=== PATIENT | female | born 1995 | race African-American/Black ===

== ENCOUNTER 2016-08-03 09:50 | Observation (INO) | payer MEDICAID ==
[2016-08-04] MEDS ORDERED: PRENCAP61 PO (12:16)
[2016-08-04] MEDS ORDERED: FERR-7 PO (12:17)
== END 2016-08-03 12:00 | disposition home or self-care (01) | DRG 566 ==
LOC: LDRP 09:50
PROVIDERS: ADMIT Specialist; ATTEND Specialist
DX: O48.0 Post-term pregnancy (principal); Z3A.00 Weeks of gestation of pregnancy not specified
CPT/HCPCS: 59025; 76818; 81002; G0378

== ENCOUNTER 2016-08-03 23:08 | Inpatient (IN) | payer MEDICAID ==
[~2016-08-03] VITALS: Ht 165.1 cm; Wt 123.4 kg
[2016-08-03] MEDS ORDERED: WITCH HAZEL-GLYCERIN PAD TOP ONE (23:24)
[2016-08-03] MEDS ORDERED: DERMOPLAST 60ML BOTTLE TOP ONE (23:24)
[2016-08-03] MEDS ORDERED: LIDOCAINE 2%HCL (LOCAL ANESTH.) INJ 20ML MDV ONE (23:24)
[2016-08-03] MEDS ORDERED: PHISODERM TOP SOLN 240ML BTL TOP ONE (23:24)
[2016-08-03] MEDS ORDERED: LACT. RINGERS/OXYTOCIN 20UNITS 1,000 ML IV ONE (23:24)
[2016-08-03] MEDS ORDERED: METHYLERGONOVINE MALEATE 0.2 MG/ML AMP IM ONE (23:25)
[2016-08-03] MEDS ORDERED: LACTATED RINGER'S 1,000 ML IV SCH (23:38)
[2016-08-03] MEDS ORDERED: NALBUPHINE HCL 10 MG/1ml INJECTION IV PRN (23:45)
[2016-08-04] MEDS ORDERED: OXYTOCIN 10UNIT/ML 1ML VIAL ONE (00:19)
[2016-08-04] MEDS ORDERED: LACT. RINGERS/OXYTOCIN 20UNITS 500 ML IV ONE (00:50)
[2016-08-04 01:13] LABS: Basophils # (auto) 0 uL; Basophils % (auto) 0.3 % (0.0-2.0); Eosinophils # (auto) 0 uL; Eosinophils % (auto) 0.7 % (0.0-7.0); Lymphocytes # (auto) 1.5 uL; Lymphocytes % (auto) 21.1 % (10.0-50.0); Mean Corpuscular Hemoglobin 30.7 pg (28.0-32.0); Mean Corpuscular Hgb Conc. 33.4 g/dL (32.0-36.0); Mean Corpuscular Volume 91.9 fL (80.0-100.0); Mean Platelet Volume 8.6 fL (7.4-10.4); Monocytes # (auto) 0.5 uL; Monocytes % (auto) 6.4 % (0.0-12.0); Neutrophils # (auto) 5.1 uL; Neutrophils % (auto) 71.5 % (37.0-80.0); Platelet Count (auto) 149 10^3/uL (140-450); Red Cell Distribution Width 13.9 % (11.6-16.0); White Blood Cell 7.1 10^3/uL (4.4-10.8)
[2016-08-04 01:20] LABS: Urine Bilirubin Negative (Negative); Urine Color Yellow (Yellow); Urine Glucose Normal (Normal); Urine Ketone TRACE (Negative); Urine Mucus FEW (None Seen); Urine Nitrite Negative (Negative); Urine RBC 36 /hpf (0 - 4); Urine Squamous Epithelial Cell FEW /hpf (<5); Urine pH 6.5 (5.0-8.0)
[2016-08-04 01:21] LABS: Urine Blood 2+ /uL (Negative)
[2016-08-04 01:27] LABS: Partial Thromboplastin Time 28.5 sec (22.64-33.71); Prothrombin Time 9.4 sec (9.37-12.3)
[2016-08-04 01:29] LABS: INR 0.86 (0.9-1.15)
[2016-08-04 01:31] LABS: Albumin 2.4 g/dL (3.4-5.0); BUN/Creatinine Ratio 9.5; Calcium 8.5 mg/dL (8.5-10.1); Potassium 3.6 mmol/L (3.5-5.1)
[2016-08-04 01:34] LABS: Bilirubin, Total 0.4 mg/dL (0.2-1.0); Total Protein 7.1 g/dL (6.4-8.2)
[2016-08-04] MEDS: IBUPROFEN 600 MG TAB PO PRN ×3 (03:43→17:19)
[2016-08-04 08:00] VITALS: BP 115/64
[2016-08-04] MEDS ORDERED: PRENCAP61 PO (12:16)
[2016-08-04 12:17] VITALS: BP 99/55
[2016-08-04] MEDS ORDERED: FERR-7 PO (12:17)
[2016-08-04 15:56] VITALS: BP 115/77
[2016-08-04 19:30] VITALS: BP 130/68
[2016-08-05 00:30] VITALS: BP 114/72
[2016-08-05] MEDS ORDERED: TETANUS-DIPTH-ACEL PERTUSSIS 0.5ML SYRG IM ONE (00:45)
[2016-08-05] MEDS ORDERED: MEASLES, MUMPS & RUBELLA VAC(MMRII) 0.5ML SC ONE (00:45)
[2016-08-05 04:30] VITALS: BP 107/62
[2016-08-05 08:16] VITALS: BP 109/62
== END 2016-08-05 10:40 | disposition home or self-care (01) | DRG 560 ==
LOC: LDRP 23:08 → OBSVTOIN 23:08
PROVIDERS: ADMIT Specialist; ATTEND Specialist
PROC: 10E0XZZ Delivery of Products of Conception, External Approach (ICD-10-PCS; principal; 2016-08-04)
DX: O80 Encounter for full-term uncomplicated delivery (principal); Z37.0 Single live birth; Z3A.40 40 weeks gestation of pregnancy
CPT/HCPCS: 36415; 51702; 59025; 59409; 80053; 80307; 81001; 85025; 85610; 85730; 86850; 86900; 86901; 90472; 90715; 96365; 96366; 96372; G0378; J2590

== ENCOUNTER 2021-03-09 07:34 | Observation (INO) | payer MEDICAID ==
[~2021-03-09 07:34] MED LIST: FERR-7 PO; PRENCAP61 PO
[2021-03-09 13:09] LABS: Urine Bacteria FEW /hpf (None Seen); Urine Blood Negative /uL (Negative); Urine Hyaline Cast FEW /lpf (0 - 2); Urine Mucus FEW (None Seen); Urine WBC 8 /hpf (0 - 5)
== END 2021-03-09 13:34 | disposition home or self-care (01) ==
LOC: LDRP 11:47
PROVIDERS: ADMIT Obstetrics & Gynecology Obstetrics; ATTEND Obstetrics & Gynecology Obstetrics
DX: O24.419 Gestational diabetes mellitus in pregnancy, unspecified control (principal); O98.813 Other maternal infectious and parasitic diseases complicating pregnancy, third trimester; Z3A.33 33 weeks gestation of pregnancy
CPT/HCPCS: 59025; 81001; 81002; 82962; 87491; 87591; 94760; G0378

== ENCOUNTER 2021-03-16 08:30 | Observation (INO) | payer MEDICAID ==
[2021-04-07 14:50] LABS: Basophils # (auto) 0.1 10 ^3/uL (0-0.2); Eosinophils # (auto) 0 10 ^3/uL (0-0.8); Eosinophils % (auto) 0.6 % (0.0-7.0); Hematocrit 36.2 % (36.0-46.0); Lymphocytes # (auto) 1.3 10 ^3/uL (0.4-5.4); Lymphocytes % (auto) 22.5 % (10.0-50.0); Mean Corpuscular Hemoglobin 28.3 pg (28.0-32.0); Mean Corpuscular Hgb Conc. 33.2 g/dL (32.0-36.0); Mean Corpuscular Volume 85.1 fL (80.0-100.0); Monocytes # (auto) 0.4 10 ^3/uL (0-1.3); Monocytes % (auto) 6.8 % (0.0-12.0); Neutrophils % (auto) 69.1 % (37.0-80.0); Nucleated Red Blood Cells % 0.1 %; Red Blood Cells 4.25 10^6/uL (4.0-5.20); White Blood Cell 5.8 10^3/uL (4.4-10.8)
[2021-04-07 15:06] LABS: INR 0.91 (0.9-1.15)
[2021-04-07 15:09] LABS: Albumin 2.8 g/dL (3.4-5.0); Calcium 8.6 mg/dL (8.5-10.1); Potassium 3.4 mmol/L (3.5-5.1); Uric Acid 2.6 mg/dL (2.6-6.0)
[2021-04-07 15:12] LABS: BUN/Creatinine Ratio 6.3; Bilirubin, Total 0.7 mg/dL (0.2-1.0); Total Protein 7.6 g/dL (6.4-8.2)
[2021-04-07 15:23] LABS: Urine Bacteria FEW /hpf (None Seen); Urine Blood Negative /uL (Negative); Urine Specific Gravity 1.004 (1.001-1.035); Urine WBC 1 /hpf (0 - 5)
[2021-04-07 16:46] LABS: Creatinine, Urine 23 mg/dL (30.0-125.0); Protein, Urine < 5.0 mg/dL (0.0-11.9)
== END 2021-04-07 14:50 | disposition home or self-care (01) ==
LOC: LDRP 04-07 11:30
PROVIDERS: ADMIT Obstetrics & Gynecology; ATTEND Obstetrics & Gynecology
DX: O24.419 Gestational diabetes mellitus in pregnancy, unspecified control (principal); Z3A.37 37 weeks gestation of pregnancy; Z79.899 Other long term (current) drug therapy
CPT/HCPCS: 36415; 59025; 76818; 80053; 81001; 81002; 82570; 82948; 82962; 84156; 84550; 85025; 85610; 85730; G0378

== ENCOUNTER 2021-04-09 08:30 | Observation (INO) | payer MEDICAID ==
[2021-04-09 09:12] LABS: Protein, Urine 9.6 mg/dL (0.0-11.9)
[2021-04-09 09:26] LABS: 24 Hr. Total Protein, Urine 182.4 mg/24 Hr (<149.1)
[2021-04-09 11:39] LABS: Creatinine Clearance, Urine 75.05 mL/min (75-115)
[2021-04-09 12:11] LABS: Protein, Urine 36.3 mg/dL (0.0-11.9)
== END 2021-04-09 12:22 | disposition home or self-care (01) ==
LOC: LDRP 08:30
PROVIDERS: ADMIT Obstetrics & Gynecology; ATTEND Obstetrics & Gynecology
DX: O24.419 Gestational diabetes mellitus in pregnancy, unspecified control (principal); O13.3 Gestational [pregnancy-induced] hypertension without significant proteinuria, third trimester; Z3A.37 37 weeks gestation of pregnancy; Z79.899 Other long term (current) drug therapy; Z98.890 Other specified postprocedural states
CPT/HCPCS: 59025; 76818; 81002; 82570; 82575; 82948; 82962; 84156; G0378; G0379

== ENCOUNTER 2021-04-27 10:34 | Inpatient (IN) | payer MEDICAID ==
[~2021-04-27] VITALS: Ht 165.1 cm; Wt 135.2 kg
[2021-04-27] MEDS ORDERED: BUTORPHANOL TARTRATE 2 MG/1 ML VIAL IV PRN ×2 (20:30)
[2021-04-27] MEDS ORDERED: LIDOCAINE 2%HCL (LOCAL ANESTH.) INJ 20ML MDV IJ PRN (20:30)
[2021-04-27] MEDS ORDERED: PROMETHAZINE HCL 25 MG/ML 1ML IV PRN (20:30)
[2021-04-27] MEDS ORDERED: miSOPROStol 50 MCG per PRE-CUT 1/2 TAB PO PRN (21:00)
[2021-04-27] MEDS ORDERED: LACT. RINGERS/OXYTOCIN 20UNITS 500 ML IV ONE ×2 (21:00→21:30)
[2021-04-27] MEDS: WITCH HAZEL-GLYCERIN PAD TOP PRN (21:06)
[2021-04-27] MEDS: DERMOPLAST 60ML BOTTLE TOP PRN (21:06)
[2021-04-27] MEDS: PHISODERM TOP SOLN 240ML BTL TOP PRN (21:06)
[2021-04-27] MEDS: LACTATED RINGER'S 1,000 ML IV SCH (21:10)
[2021-04-27 21:39] LABS: Basophils # (auto) 0 10 ^3/uL (0-0.2); Basophils % (auto) 0.2 % (0.0-2.0); Eosinophils # (auto) 0 10 ^3/uL (0-0.8); Eosinophils % (auto) 0.4 % (0.0-7.0); Hematocrit 33.3 % (36.0-46.0); Lymphocytes # (auto) 1.3 10 ^3/uL (0.4-5.4); Lymphocytes % (auto) 24.8 % (10.0-50.0); Mean Corpuscular Hemoglobin 27.8 pg (28.0-32.0); Mean Corpuscular Volume 84.4 fL (80.0-100.0); Monocytes # (auto) 0.4 10 ^3/uL (0-1.3); Monocytes % (auto) 8.1 % (0.0-12.0); Neutrophils # (auto) 3.6 10 ^3/uL (1.6-8.6); Neutrophils % (auto) 66.5 % (37.0-80.0); Nucleated Red Blood Cells % 0.1 %; Red Blood Cells 3.94 10^6/uL (4.0-5.20); Red Cell Distribution Width 16.1 % (11.8-14.3); White Blood Cell 5.4 10^3/uL (4.4-10.8)
[2021-04-27 21:42] LABS: Urine Bacteria MOD /hpf (None Seen); Urine Blood Negative /uL (Negative); Urine Specific Gravity 1.017 (1.001-1.035); Urine Sperm PRESENT /hpf (None Seen); Urine WBC 5 /hpf (0 - 5)
[2021-04-27 21:55] LABS: INR 0.91 (0.9-1.15); Partial Thromboplastin Time 27.6 sec (23.6-33.0)
[2021-04-27 21:59] LABS: Albumin 2.5 g/dL (3.4-5.0); Calcium 8.5 mg/dL (8.5-10.1); Potassium 3.5 mmol/L (3.5-5.1)
[2021-04-27 22:02] LABS: BUN/Creatinine Ratio 9.2; Bilirubin, Total 0.6 mg/dL (0.2-1.0)
[2021-04-27 22:52] LABS: Alcohol, Urine < 3.0 mg/dL (0-10); Amphetamine Screen, Urine NEGATIVE (NEGATIVE); Barbiturate Scree,Urine NEGATIVE (NEGATIVE); Benzodiazephine Screen, Urine NEGATIVE (NEGATIVE); Cannabinoid Screen, Urine NEGATIVE (NEGATIVE); Cocaine Screen, Urine NEGATIVE (NEGATIVE); Opiate Scree,Urine NEGATIVE (NEGATIVE); Phencyclidine Screen, Urine NEGATIVE (NEGATIVE)
[2021-04-28] MEDS: ACCU-CHEK COMFORT CURVE STRIP VI SCH ×3 (01:04→06:03)
[2021-04-28] MEDS ORDERED: NALOXONE HCL 0.4 MG/ML VIAL IV ONE (01:15)
[2021-04-28] MEDS ORDERED: ROPIVACAINE HCL 200 ML EPI SCH (01:15)
[2021-04-28] MEDS ORDERED: LACTATED RINGER'S 1,000 ML IV ONE (01:15)
[2021-04-28] MEDS ORDERED: LIDOCAINE HCL 2 %PF INJ 10ML AMP IJ ONE (01:15)
[2021-04-28] MEDS ORDERED: ePHEDrine SULFATE 50 MG/ML AMP IV ONE (01:15)
[2021-04-28] MEDS ORDERED: fentaNYL CITRATE 100 MCG/2 ML VL IV ONE (01:15)
[2021-04-28] MEDS ORDERED: TERBUTALINE SULFATE 1 MG/ML 1ML VIAL SC PRN (01:15)
[2021-04-28] MEDS ORDERED: LACTATED RINGER'S 500 ML IV ONE (01:15)
[2021-04-28] MEDS ORDERED: LACT. RINGERS/OXYTOCIN 20UNITS 1,000 ML IV SCH (01:15)
[2021-04-28] MEDS: LACTATED RINGER'S 1,000 ML IV SCH ×2 (05:33→06:27)
[2021-04-28] MEDS ORDERED: METHYLERGONOVINE MALEATE 0.2 MG/ML AMP IM ONE ×2 (08:21→08:45)
[2021-04-28] MEDS ORDERED: ONDANSETRON ODT 4 MG TAB PO PRN (08:45)
[2021-04-28] MEDS ORDERED: LACT. RINGERS/OXYTOCIN 20UNITS 500 ML IV ONE ×2 (08:45→09:15)
[2021-04-28] MEDS ORDERED: IBUPROFEN 600 MG TAB PO PRN ×2 (08:45→22:45)
[2021-04-28] MEDS: IBUPROFEN 800 MG TAB PO SCH ×2 (12:20→17:38)
[2021-04-28] MEDS: PHISODERM TOP SOLN 240ML BTL TOP PRN (12:30)
[2021-04-28] MEDS: WITCH HAZEL-GLYCERIN PAD TOP PRN (12:30)
[2021-04-28] MEDS: DERMOPLAST 60ML BOTTLE TOP PRN (12:30)
[2021-04-28] MEDS: ACETAMINOPHEN 325 MG TAB PO PRN ×2 (14:47→20:49)
[2021-04-28 15:00] VITALS: BP 137/70
[2021-04-28 18:41] VITALS: BP 134/86
[2021-04-28 23:16] VITALS: BP 129/85
[2021-04-29] MEDS ORDERED: ACETAMINOPHEN 325 MG TAB PO PRN (02:00)
[2021-04-29 03:00] VITALS: BP 114/59
[2021-04-29] MEDS: IBUPROFEN 600 MG TAB PO PRN ×2 (03:23→10:43)
[2021-04-29 07:06] LABS: Rubella Antibodies, IgG 9.41 index (Immune >0.99)
[2021-04-29 07:13] VITALS: BP 127/80
[2021-04-29 08:06] LABS: RPR Non Reactive (Non Reactive)
== END 2021-04-29 14:24 | disposition home or self-care (01) | DRG 560 ==
LOC: PREOBSVTOIN 10:34 → UNDOADMOB 19:09 → LDRP 19:09 → OBSVTOIN 19:31 → INTOOBSV 20:05 → LDRP 20:29 → UNDODISIN 04-29 14:24
PROVIDERS: ADMIT Obstetrics & Gynecology Obstetrics; ATTEND Obstetrics & Gynecology Obstetrics
PROC: 10E0XZZ Delivery of Products of Conception, External Approach (ICD-10-PCS; principal; 2021-04-27)
PROC: 3E0R3BZ Introduction of Anesthetic Agent into Spinal Canal, Percutaneous Approach (ICD-10-PCS; 2021-04-27)
PROC: 00HU33Z Insertion of Infusion Device into Spinal Canal, Percutaneous Approach (ICD-10-PCS; 2021-04-27)
PROC: 3E0DXGC Introduction of Other Therapeutic Substance into Mouth and Pharynx, External Approach (ICD-10-PCS; 2021-04-27)
PROC: 3E0P7VZ Introduction of Hormone into Female Reproductive, Via Natural or Artificial Opening (ICD-10-PCS; 2021-04-27)
DX: O48.0 Post-term pregnancy (principal); Z37.0 Single live birth; O24.429 Gestational diabetes mellitus in childbirth, unspecified control; Z3A.40 40 weeks gestation of pregnancy; Z20.822 Contact with and (suspected) exposure to COVID-19
CPT/HCPCS: 36415; 59025; 59409; 62282; 76818; 80053; 80307; 81001; 81002; 82962; 85025; 85610; 85730; 86592; 86762; 86850; 86900; 86901; 87426; 94760; 94762; 96360; 96361; 96365; 96366; 96372; G0378; J2590